=== PATIENT | female | born 1985 | race Caucasian/White ===

== ENCOUNTER 2022-11-11 14:32 | Outpatient (CLI) | payer MEDICAID, SELFPAY ==
[2022-11-11 12:43] LABS: Albumin* 4.4 g/dL (3.3-5.0); Chloride* 108 mmol/L (96-114); Sodium* 138 mmol/L (135-149)
[2022-11-11 12:44] LABS: Potassium* 4.8 mmol/L (3.6-5.1)
[2022-11-11 12:45] LABS: Cholesterol* 216 mg/dL (90-199)
[2022-11-11 12:46] LABS: Alkaline Phosphatase* 97 U/L (40-150); Aspartate Amino Transferase* 23 U/L (12-35); Bilirubin Total* 0.5 mg/dL (0.1-1.5); Blood Urea Nitrogen* 13 mg/dL (5-24); Carbon Dioxide* 22 mmol/L (20-32); Creatinine* 0.6 mg/dL (0.5-1.5); Estimated Glomerular Filt Rate 118 ml/min; Glucose* 107 mg/dL (60-115); Total Protein* 7.8 g/dL (6.0-8.3); Triglycerides* 101 mg/dL (40-149)
[2022-11-11 12:47] LABS: Alanine Aminotransferase* 21 U/L (4-35); Calcium* 9.1 mg/dL (8.4-10.6); HDL Cholesterol* 82 mg/dL (>=50); LDL Cholesterol Calculated 114 mg/dL (<100)
[2022-11-11 13:22] LABS: TSH With Reflex to FT4* 0.996 uIU/mL (0.270-4.200)
== END 2022-11-11 14:33 | disposition home or self-care (01) ==
PROVIDERS: PCP Physician Assistant Medical; Visit Provider Physician Assistant Medical
DX: I10 Essential (primary) hypertension (principal); Z13.6 Encounter for screening for cardiovascular disorders; Z13.29 Encounter for screening for other suspected endocrine disorder
CPT/HCPCS: 80053; 80061; 84443

== ENCOUNTER 2023-11-18 11:44 | Outpatient (CLI) | payer MEDICAID, SELFPAY | END 2023-11-18 11:45 | disposition home or self-care (01) | PROVIDERS: PCP Physician Assistant Medical; Visit Provider Family Medicine | DX: I10 Essential (primary) hypertension (principal); Z13.220 Encounter for screening for lipoid disorders; Z13.29 Encounter for screening for other suspected endocrine disorder | CPT/HCPCS: 80053; 80061; 82043; 82570; 84443 ==

== ENCOUNTER 2025-09-05 11:55 | Outpatient (CLI) | payer OTHER, SELFPAY | END 2025-09-05 11:56 | disposition home or self-care (01) | PROVIDERS: Visit Provider Physician Assistant Medical | DX: Z00.00 Encounter for general adult medical examination without abnormal findings (principal); I10 Essential (primary) hypertension; Z13.9 Encounter for screening, unspecified | CPT/HCPCS: 80053; 80061; 84443 ==